=== PATIENT | male | born 1935 ===

== ENCOUNTER 2021-01-05 10:34 | Inpatient (IN) | payer MEDICARE ==
[~2021-01-05 10:34] MED LIST: Iopamidol-370 76% 500 ML 1 ML ONE
[2021-01-05] MEDS ORDERED: Cefepime 1 GM VIAL ONE (11:27)
[2021-01-05] MEDS ORDERED: Morphine 4 MG/ML VIAL ONE (11:27)
[2021-01-05 11:37] LABS: #Eosinphils 0.1 thou/uL (0.0-0.7); #Lymphocytes 1.3 thou/uL (1.20-3.40); #Monocytes 0.9 thou/uL (0.11-0.59); #Neutrophils 7.9 thou/uL (1.40-6.50); %Basophils 0.5 % (0.0-1.0); %Eosinophils 1.2 % (0.0-10.0); %Lymphocytes 12.5 % (21.0-51.0); %Monocytes 9.1 % (0.0-10.0); %Neutrophils 76.7 % (42.0-75.0); Hemoglobin 10.3 g/dL (14.0-18.0); Mean Corpuscular HGB CONC 31.9 g/dL (32.0-36.0); Mean Corpuscular Hemoglobin 32.1 pg (27.0-31.0); Mean Platelet Volume 9.9 fL (7.4-10.4); Platelet Count 223 thou/uL (130-400); RBC Distribution Width 14.2 % (11.5-14.5); Red Blood Cell (RBC) Count 3.21 mill/uL (4.70-6.10); White Blood Cell (WBC) Count 10.3 thou/uL (4.8-10.8)
[2021-01-05 11:57] LABS: ALT (SGPT) 8 U/L (8-55); AST (SGOT) 13 U/L (5-34); Albumin 3.1 g/dL (3.4-4.8); Alkaline Phosphatase 33 U/L (40-110); Anion Gap 11 mmol/L (10-20); BUN (Urea Nitrogen) 34 mg/dL (8.4-25.7); Bilirubin, Total 1.1 mg/dL (0.2-1.2); Calc. Creatinine Clearance 0 mL/min (70-130); Calcium 8.7 mg/dL (7.8-10.44); Carbon Dioxide 21 mmol/L (23-31); Chloride 110 mmol/L (98-107); Globulin 3.5 g/dL (2.4-3.5); Glucose 129 mg/dL (83-110); Potassium 3.7 mmol/L (3.5-5.1); Protein, Total 6.6 g/dL (5.8-8.1); Sodium 138 mmol/L (136-145)
[2021-01-05 11:58] LABS: CRP (Inflammatory) 12.71 mg/dL (= or < 0.5)
[2021-01-05] MEDS ORDERED: Vancomycin 1.5 GRAM/300 ML BAG 1.5 GM in Premix Bag 1 BAG IVPB SCH (12:00)
[2021-01-05 13:02] LABS: INR-International Normal Ratio 1.6; PTT 45.4 sec (22.9-36.1)
[2021-01-05] MEDS ORDERED: Heparin 25,000 units/D5W 500 ML ONE (13:25)
[2021-01-05] MEDS ORDERED: Senokot S 8.6-50 MG TAB PO PRN (14:50)
[2021-01-05] MEDS ORDERED: Bisacodyl 5 MG TAB PO PRN (14:50)
[2021-01-05] MEDS ORDERED: Ondansetron PF 4 MG/2 ML Vial IVP PRN (14:50)
[2021-01-05 15:36] LABS: Cardiac Risk 3.1 (Less than 4.5)
[2021-01-05 15:43] LABS: Hemoglobin A1c 5.2 % (4.0-6.0)
[2021-01-05] MEDS ORDERED: Piperacillin/Tazobactam 3.375 GM in Sodium Chloride 0.9% 100 ML IVPB SCH ×3 (16:00→20:00)
[2021-01-05] MEDS: Famotidine 20 MG TAB PO SCH (21:14)
[2021-01-05] MEDS: HYDROcodone/Acetaminophen 5/325 mg Tablet PO PRN (21:19)
[2021-01-06 00:37] LABS: SARS-CoV-2 NAA Rapid Test Not Detected (NotDetected)
[2021-01-06] MEDS: Piperacillin/Tazobactam 3.375 GM in Sodium Chloride 0.9% 100 ML IVPB SCH ×3 (02:15→17:08)
[2021-01-06 05:09] LABS: Hemoglobin 11.6 g/dL (14.0-18.0); Mean Corpuscular HGB CONC 31.9 g/dL (32.0-36.0); Mean Corpuscular Hemoglobin 32.7 pg (27.0-31.0); Mean Platelet Volume 9.6 fL (7.4-10.4); Platelet Count 226 thou/uL (130-400); RBC Distribution Width 14.3 % (11.5-14.5); Red Blood Cell (RBC) Count 3.55 mill/uL (4.70-6.10); White Blood Cell (WBC) Count 10.8 thou/uL (4.8-10.8)
[2021-01-06 05:44] LABS: Band 7 % (5-11); Eosinophils 1 % (0-10); Lymphocytes 15 % (21-51); MDiff Complete? YES; Monocytes 3 % (0-10); Neutrophil 74 % (42-75)
[2021-01-06 05:52] LABS: ALT (SGPT) 9 U/L (8-55); AST (SGOT) 19 U/L (5-34); Albumin 3.2 g/dL (3.4-4.8); Alkaline Phosphatase 36 U/L (40-110); Anion Gap 13 mmol/L (10-20); BUN (Urea Nitrogen) 29 mg/dL (8.4-25.7); Bilirubin, Total 0.9 mg/dL (0.2-1.2); Calc. Creatinine Clearance 35 mL/min (70-130); Calcium 8.8 mg/dL (7.8-10.44); Carbon Dioxide 18 mmol/L (23-31); Chloride 110 mmol/L (98-107); Globulin 3.7 g/dL (2.4-3.5); Glucose 96 mg/dL (83-110); Protein, Total 6.9 g/dL (5.8-8.1); Sodium 137 mmol/L (136-145)
[2021-01-06] MEDS: Famotidine 20 MG TAB PO SCH (08:43)
[2021-01-06] MEDS ORDERED: Enoxaparin Sodium 30 MG/0.3 ML SYRINGE SC SCH (09:00)
[2021-01-06] MEDS ORDERED: FLU VACC QS2021-22(65YR UP)/PF 240 MCG/0.7 ML SYRINGE IM ONE (09:00)
[2021-01-06] MEDS: hydrALAZINE 25 MG TAB PO SCH ×2 (17:09→20:38)
[2021-01-06] MEDS: hydrALAZINE 20 MG/ML VIAL SLOW IVP PRN ×2 (17:16→23:19)
[2021-01-07] MEDS: Piperacillin/Tazobactam 3.375 GM in Sodium Chloride 0.9% 100 ML IVPB SCH ×3 (01:16→17:18)
[2021-01-07] MEDS: hydrALAZINE 20 MG/ML VIAL SLOW IVP PRN (03:27)
[2021-01-07] MEDS: Famotidine 20 MG TAB PO SCH (08:17)
[2021-01-07] MEDS: Enoxaparin Sodium 40 MG/0.4 ML SYRINGE SC SCH (08:17)
[2021-01-07] MEDS: hydrALAZINE 25 MG TAB PO SCH ×4 (08:18→20:32)
[2021-01-08] MEDS: Piperacillin/Tazobactam 3.375 GM in Sodium Chloride 0.9% 100 ML IVPB SCH ×3 (02:01→18:09)
[2021-01-08] MEDS ORDERED: Fentanyl 250 MCG/5 ML VIAL ONE (06:43)
[2021-01-08] MEDS ORDERED: Phenylephrine 10 MG/ML VIAL ONE (06:44)
[2021-01-08] MEDS ORDERED: Ketamine 50 MG/ML (10ML VIAL) ONE (09:41)
[2021-01-08 09:55] LABS: #Eosinphils 0.1 thou/uL (0.0-0.7); #Monocytes 0.6 thou/uL (0.11-0.59); %Basophils 0.1 % (0.0-1.0); %Eosinophils 0.9 % (0.0-10.0); %Monocytes 5.7 % (0.0-10.0); %Neutrophils 84.4 % (42.0-75.0); Hemoglobin 11.8 g/dL (14.0-18.0); Mean Corpuscular Hemoglobin 32.8 pg (27.0-31.0); Platelet Count 285 thou/uL (130-400); RBC Distribution Width 14.6 % (11.5-14.5); White Blood Cell (WBC) Count 10.6 thou/uL (4.8-10.8)
[2021-01-08 10:16] LABS: INR-International Normal Ratio 1.3; PTT 43.9 sec (22.9-36.1)
[2021-01-08 10:21] LABS: Anion Gap 12 mmol/L (10-20); BUN (Urea Nitrogen) 25 mg/dL (8.4-25.7); Calc. Creatinine Clearance 41 mL/min (70-130); Calcium 9.2 mg/dL (7.8-10.44); Carbon Dioxide 22 mmol/L (23-31); Chloride 112 mmol/L (98-107); Glucose 122 mg/dL (83-110); Magnesium 2.4 mg/dL (1.6-2.6); Potassium 3.8 mmol/L (3.5-5.1); Sodium 142 mmol/L (136-145)
[2021-01-08] MEDS ORDERED: EPINEPHrine 1 MG/ML AMP ONE (10:23)
[2021-01-08] MEDS: hydrALAZINE 25 MG TAB PO SCH ×4 (10:23→21:08)
[2021-01-08] MEDS ORDERED: Dexamethasone 4 mg/ml Vial ONE (10:23)
[2021-01-08] MEDS ORDERED: Bupivacaine PF 0.5% 30 ML VIAL ONE (10:23)
[2021-01-08] MEDS ORDERED: Piperacillin/Tazobactam 3.375 GM VIAL ONE (10:31)
[2021-01-08] MEDS ORDERED: Sodium Chloride 0.9% 100 ML ONE (10:31)
[2021-01-08] MEDS ORDERED: PHENYLEPHRINE-NS 100 MCG/ML 10 ML SYRINGE ONE (10:47)
[2021-01-08] MEDS ORDERED: PROPOFOL 200 MG/20 ML VIAL ONE (10:47)
[2021-01-08] MEDS ORDERED: Glycopyrrolate 0.2 MG/ML 5 ML SYRINGE ONE (10:47)
[2021-01-08] MEDS ORDERED: Rocuronium Bromide 10 MG/ML (10ML VIAL) ONE (10:47)
[2021-01-08] MEDS ORDERED: Albumin 5% 500 ML ONE (11:17)
[2021-01-08] MEDS ORDERED: SUGAMMADEX SODIUM 200 MG/2 ML VIAL ONE (11:59)
[2021-01-08] MEDS ORDERED: Fentanyl 100 MCG/2 ML VIAL ONE (12:03)
[2021-01-08] MEDS ORDERED: Promethazine HCl 25 MG/ML VIAL IVPB PRN (12:15)
[2021-01-08] MEDS ORDERED: Ondansetron HCl/PF 4 MG/2 ML Vial IVP PRN (12:15)
[2021-01-08] MEDS ORDERED: Promethazine HCl 25 MG/ML VIAL IM PRN (12:15)
[2021-01-08] MEDS ORDERED: HYDROmorphone 2 MG/ML VIAL SLOW IVP PRN (12:15)
[2021-01-08] MEDS ORDERED: Fentanyl 100 MCG/2 ML VIAL SLOW IVP PRN (12:54)
[2021-01-08] MEDS ORDERED: traMADol HCl 50 MG TAB PO PRN (12:54)
[2021-01-08] MEDS: Enoxaparin Sodium 40 MG/0.4 ML SYRINGE SC SCH (13:10)
[2021-01-08] MEDS: Famotidine 20 MG TAB PO SCH (13:11)
[2021-01-08] MEDS ORDERED: Polyethylene Glycol 3350 17 GM Packet PO PRN (14:48)
[2021-01-08] MEDS: hydrALAZINE 20 MG/ML VIAL SLOW IVP PRN (18:12)
[2021-01-09] MEDS: Piperacillin/Tazobactam 3.375 GM in Sodium Chloride 0.9% 100 ML IVPB SCH ×3 (02:30→17:01)
[2021-01-09 06:50] LABS: Anion Gap 13 mmol/L (10-20); BUN (Urea Nitrogen) 26 mg/dL (8.4-25.7); Calc. Creatinine Clearance 46 mL/min (70-130); Carbon Dioxide 22 mmol/L (23-31); Chloride 114 mmol/L (98-107); Glucose 116 mg/dL (83-110); Potassium 3.9 mmol/L (3.5-5.1); Sodium 145 mmol/L (136-145)
[2021-01-09] MEDS: hydrALAZINE 25 MG TAB PO SCH ×4 (07:39→20:40)
[2021-01-09] MEDS: Famotidine 20 MG TAB PO SCH (07:39)
[2021-01-09] MEDS: Enoxaparin Sodium 40 MG/0.4 ML SYRINGE SC SCH (07:40)
[2021-01-09] MEDS: traMADol HCl 50 MG TAB PO PRN (07:40)
[2021-01-09] MEDS ORDERED: Amlodipine 5 MG TAB PO SCH (10:45)
[2021-01-09] MEDS ORDERED: Carvedilol 6.25 MG TAB PO SCH (10:45)
[2021-01-09] MEDS: HYDROcodone/Acetaminophen 5/325 mg Tablet PO PRN (13:18)
[2021-01-09] MEDS: Atorvastatin Calcium 10 MG TAB PO SCH (20:40)
[2021-01-09] MEDS: Carvedilol 6.25 MG TAB PO SCH (20:41)
[2021-01-10] MEDS: Piperacillin/Tazobactam 3.375 GM in Sodium Chloride 0.9% 100 ML IVPB SCH ×3 (02:21→18:45)
[2021-01-10] MEDS: Levothyroxine Sodium 25 MCG TAB PO SCH (05:26)
[2021-01-10 05:51] LABS: #Eosinphils 0.2 thou/uL (0.0-0.7); #Lymphocytes 1.4 thou/uL (1.20-3.40); #Monocytes 0.7 thou/uL (0.11-0.59); #Neutrophils 6.2 thou/uL (1.40-6.50); %Basophils 0.1 % (0.0-1.0); %Eosinophils 2.9 % (0.0-10.0); %Lymphocytes 16.1 % (21.0-51.0); %Monocytes 8.1 % (0.0-10.0); %Neutrophils 72.7 % (42.0-75.0); Hemoglobin 9.8 g/dL (14.0-18.0); Mean Corpuscular HGB CONC 33.1 g/dL (32.0-36.0); Mean Corpuscular Hemoglobin 33.9 pg (27.0-31.0); Mean Platelet Volume 8.9 fL (7.4-10.4); Platelet Count 258 thou/uL (130-400); RBC Distribution Width 14.7 % (11.5-14.5); Red Blood Cell (RBC) Count 2.89 mill/uL (4.70-6.10); White Blood Cell (WBC) Count 8.5 thou/uL (4.8-10.8)
[2021-01-10 06:11] LABS: Anion Gap 13 mmol/L (10-20); BUN (Urea Nitrogen) 26 mg/dL (8.4-25.7); Calc. Creatinine Clearance 44 mL/min (70-130); Calcium 8.8 mg/dL (7.8-10.44); Carbon Dioxide 23 mmol/L (23-31); Chloride 110 mmol/L (98-107); Glucose 96 mg/dL (83-110); Potassium 3.9 mmol/L (3.5-5.1); Sodium 142 mmol/L (136-145)
[2021-01-10] MEDS: Carvedilol 6.25 MG TAB PO SCH ×2 (09:35→20:18)
[2021-01-10] MEDS: Famotidine 20 MG TAB PO SCH (09:35)
[2021-01-10] MEDS: Amlodipine 5 MG TAB PO SCH (09:35)
[2021-01-10] MEDS: hydrALAZINE 25 MG TAB PO SCH ×4 (09:35→20:17)
[2021-01-10] MEDS: Finasteride 5 MG TAB PO SCH (09:35)
[2021-01-10] MEDS: Enoxaparin Sodium 40 MG/0.4 ML SYRINGE SC SCH (09:35)
[2021-01-10] MEDS: HYDROcodone/Acetaminophen 5/325 mg Tablet PO PRN (09:38)
[2021-01-10] MEDS: traMADol HCl 50 MG TAB PO PRN (14:07)
[2021-01-10] MEDS ORDERED: Sodium Chloride 0.9% 1,000 ML IV SCH (15:15)
[2021-01-10] MEDS: Atorvastatin Calcium 10 MG TAB PO SCH (20:18)
[2021-01-11] MEDS: Piperacillin/Tazobactam 3.375 GM in Sodium Chloride 0.9% 100 ML IVPB SCH (01:46)
[2021-01-11] MEDS: Levothyroxine Sodium 25 MCG TAB PO SCH (05:27)
[2021-01-11] MEDS: hydrALAZINE 25 MG TAB PO SCH ×4 (10:23→21:07)
[2021-01-11] MEDS: Famotidine 20 MG TAB PO SCH (10:23)
[2021-01-11] MEDS: Amlodipine 5 MG TAB PO SCH (10:23)
[2021-01-11] MEDS: Finasteride 5 MG TAB PO SCH (10:24)
[2021-01-11] MEDS: Enoxaparin Sodium 40 MG/0.4 ML SYRINGE SC SCH (10:24)
[2021-01-11] MEDS: Carvedilol 6.25 MG TAB PO SCH ×2 (10:24→21:07)
[2021-01-11] MEDS: traMADol HCl 50 MG TAB PO PRN ×2 (10:45→23:30)
[2021-01-11 11:39] LABS: #Eosinphils 0.4 thou/uL (0.0-0.7); #Lymphocytes 1.1 thou/uL (1.20-3.40); #Monocytes 0.5 thou/uL (0.11-0.59); %Basophils 0.5 % (0.0-1.0); %Eosinophils 5.8 % (0.0-10.0); %Monocytes 6.4 % (0.0-10.0); %Neutrophils 71.3 % (42.0-75.0); Hemoglobin 9.4 g/dL (14.0-18.0); Mean Corpuscular HGB CONC 32.7 g/dL (32.0-36.0); Mean Corpuscular Hemoglobin 33.1 pg (27.0-31.0); Mean Platelet Volume 8.6 fL (7.4-10.4); Platelet Count 248 thou/uL (130-400); RBC Distribution Width 14.5 % (11.5-14.5); Red Blood Cell (RBC) Count 2.83 mill/uL (4.70-6.10); White Blood Cell (WBC) Count 7.1 thou/uL (4.8-10.8)
[2021-01-11 12:02] LABS: Anion Gap 8 mmol/L (10-20); BUN (Urea Nitrogen) 25 mg/dL (8.4-25.7); Calc. Creatinine Clearance 45 mL/min (70-130); Calcium 8.2 mg/dL (7.8-10.44); Carbon Dioxide 25 mmol/L (23-31); Chloride 111 mmol/L (98-107); Glucose 130 mg/dL (83-110); Potassium 3.6 mmol/L (3.5-5.1); Sodium 140 mmol/L (136-145)
[2021-01-11] MEDS ORDERED: Tamsulosin HCl 0.4 MG CAP PO SCH (14:00)
[2021-01-11] MEDS: Atorvastatin Calcium 10 MG TAB PO SCH (21:08)
[2021-01-11] MEDS: Acetaminophen 325 MG TAB PO PRN (23:32)
[2021-01-12 04:35] LABS: #Eosinphils 0.4 thou/uL (0.0-0.7); #Lymphocytes 1.5 thou/uL (1.20-3.40); #Monocytes 0.5 thou/uL (0.11-0.59); #Neutrophils 3.9 thou/uL (1.40-6.50); %Basophils 0.5 % (0.0-1.0); %Eosinophils 5.8 % (0.0-10.0); %Lymphocytes 23.1 % (21.0-51.0); %Monocytes 8.5 % (0.0-10.0); %Neutrophils 62.2 % (42.0-75.0); Hemoglobin 9.3 g/dL (14.0-18.0); Mean Corpuscular HGB CONC 32.5 g/dL (32.0-36.0); Mean Corpuscular Hemoglobin 33.1 pg (27.0-31.0); Mean Platelet Volume 8.9 fL (7.4-10.4); Platelet Count 250 thou/uL (130-400); RBC Distribution Width 14.6 % (11.5-14.5); Red Blood Cell (RBC) Count 2.79 mill/uL (4.70-6.10); White Blood Cell (WBC) Count 6.3 thou/uL (4.8-10.8)
[2021-01-12] MEDS: Finasteride 5 MG TAB PO SCH (09:32)
[2021-01-12] MEDS: Famotidine 20 MG TAB PO SCH (09:32)
[2021-01-12] MEDS: Tamsulosin HCl 0.4 MG CAP PO SCH (09:33)
[2021-01-12] MEDS: Carvedilol 6.25 MG TAB PO SCH ×2 (09:33→21:01)
[2021-01-12] MEDS: Levothyroxine Sodium 25 MCG TAB PO SCH (09:33)
[2021-01-12] MEDS: Amlodipine 5 MG TAB PO SCH (09:33)
[2021-01-12] MEDS: hydrALAZINE 25 MG TAB PO SCH ×4 (09:33→21:02)
[2021-01-12] MEDS: Enoxaparin Sodium 40 MG/0.4 ML SYRINGE SC SCH (09:34)
[2021-01-12] MEDS ORDERED: Sodium Chloride 0.9% 1,000 ML IV SCH (09:45)
[2021-01-12 10:07] LABS: #Basophils 0.1 thou/uL (0.0-0.2); #Eosinphils 0.4 thou/uL (0.0-0.7); #Lymphocytes 1.5 thou/uL (1.20-3.40); #Monocytes 0.5 thou/uL (0.11-0.59); #Neutrophils 4.9 thou/uL (1.40-6.50); %Basophils 0.8 % (0.0-1.0); %Eosinophils 5.4 % (0.0-10.0); %Lymphocytes 20.6 % (21.0-51.0); %Monocytes 6.9 % (0.0-10.0); %Neutrophils 66.3 % (42.0-75.0); Hemoglobin 10.5 g/dL (14.0-18.0); Mean Corpuscular HGB CONC 32.5 g/dL (32.0-36.0); Mean Corpuscular Hemoglobin 32.9 pg (27.0-31.0); Mean Platelet Volume 8.9 fL (7.4-10.4); Platelet Count 299 thou/uL (130-400); RBC Distribution Width 14.5 % (11.5-14.5); Red Blood Cell (RBC) Count 3.19 mill/uL (4.70-6.10); White Blood Cell (WBC) Count 7.4 thou/uL (4.8-10.8)
[2021-01-12 10:32] LABS: Anion Gap 12 mmol/L (10-20); BUN (Urea Nitrogen) 28 mg/dL (8.4-25.7); Calc. Creatinine Clearance 42 mL/min (70-130); Calcium 8.9 mg/dL (7.8-10.44); Carbon Dioxide 24 mmol/L (23-31); Chloride 108 mmol/L (98-107); Glucose 109 mg/dL (83-110); Potassium 3.9 mmol/L (3.5-5.1); Sodium 140 mmol/L (136-145)
[2021-01-12] MEDS: HYDROcodone/Acetaminophen 5/325 mg Tablet PO PRN (20:57)
[2021-01-12] MEDS: Atorvastatin Calcium 10 MG TAB PO SCH (21:01)
[2021-01-13] MEDS: Levothyroxine Sodium 25 MCG TAB PO SCH (05:22)
[2021-01-13 05:46] LABS: #Eosinphils 0.3 thou/uL (0.0-0.7); #Lymphocytes 1.3 thou/uL (1.20-3.40); #Monocytes 0.5 thou/uL (0.11-0.59); #Neutrophils 4.1 thou/uL (1.40-6.50); %Basophils 0.1 % (0.0-1.0); %Eosinophils 4.6 % (0.0-10.0); %Lymphocytes 21.7 % (21.0-51.0); %Monocytes 7.9 % (0.0-10.0); %Neutrophils 65.7 % (42.0-75.0); Hemoglobin 9.2 g/dL (14.0-18.0); Mean Corpuscular HGB CONC 32.8 g/dL (32.0-36.0); Mean Corpuscular Hemoglobin 33.3 pg (27.0-31.0); Mean Platelet Volume 8.7 fL (7.4-10.4); Platelet Count 257 thou/uL (130-400); RBC Distribution Width 14.8 % (11.5-14.5); Red Blood Cell (RBC) Count 2.75 mill/uL (4.70-6.10); White Blood Cell (WBC) Count 6.2 thou/uL (4.8-10.8)
[2021-01-13 06:07] LABS: Anion Gap 10 mmol/L (10-20); BUN (Urea Nitrogen) 27 mg/dL (8.4-25.7); Calc. Creatinine Clearance 46 mL/min (70-130); Calcium 8.3 mg/dL (7.8-10.44); Carbon Dioxide 23 mmol/L (23-31); Chloride 111 mmol/L (98-107); Glucose 124 mg/dL (83-110); Potassium 3.5 mmol/L (3.5-5.1); Sodium 140 mmol/L (136-145)
[2021-01-13] MEDS: Tamsulosin HCl 0.4 MG CAP PO SCH (09:16)
[2021-01-13] MEDS: hydrALAZINE 25 MG TAB PO SCH (09:17)
[2021-01-13] MEDS: Carvedilol 6.25 MG TAB PO SCH (09:17)
[2021-01-13] MEDS: Amlodipine 5 MG TAB PO SCH (09:17)
[2021-01-13] MEDS: Famotidine 20 MG TAB PO SCH (09:18)
[2021-01-13] MEDS: Finasteride 5 MG TAB PO SCH (09:18)
[2021-01-13] MEDS: Enoxaparin Sodium 40 MG/0.4 ML SYRINGE SC SCH (09:18)
[2021-01-13] MEDS ORDERED: NIFEdipine XL 90 MG TAB PO SCH ×2 (09:45)
[2021-01-13 11:14] LABS: SARS-CoV-2 PCR by NAA Not Detected (NotDetected)
[2021-01-13] MEDS ORDERED: Calcium Chloride 1 GM/10 ML Abboject SYRINGE ONE ×2 (14:41→14:43)
[2021-01-13 14:58] LABS: Actual Bicarbonate (HCO3a) 18.5 mEq/L (22-28); Base Excess (BEa) -6.1 mEq/L (-2.0 to +3.0); CO2 Tension 32.8 mmHg (35.0-45.0); Calcium, Ionized (arterial) 1.12 mmol/L (1.12-1.30); Carboxyhemoglobin (COHb) 0.6 gm% (0.0-3.0); O2 Tension (PaO2), arterial 70.7 mmHg (> 60.0); Potassium - ABG Lab 3.53 mmol/L (3.70-5.30); Puncture Site LBA; pH, Arterial 7.37 (7.35-7.45)
[2021-01-13] MEDS ORDERED: Norepinephrine 8 MG/0.9% NS 250 ML IVPB SCH (15:45)
[2021-01-13] MEDS: Atorvastatin Calcium 10 MG TAB PO SCH (20:06)
[2021-01-13] MEDS: Dextrose 5 %-0.45 % NaCl 1,000 ML IV SCH (20:25)
[2021-01-14 04:34] LABS: #Eosinphils 0.1 thou/uL (0.0-0.7); #Lymphocytes 1.1 thou/uL (1.20-3.40); #Monocytes 0.7 thou/uL (0.11-0.59); %Eosinophils 0.9 % (0.0-10.0); %Lymphocytes 13.9 % (21.0-51.0); %Monocytes 8.4 % (0.0-10.0); %Neutrophils 76.8 % (42.0-75.0); Mean Corpuscular HGB CONC 33.4 g/dL (32.0-36.0); Mean Corpuscular Hemoglobin 33.8 pg (27.0-31.0); Mean Platelet Volume 8.7 fL (7.4-10.4); Platelet Count 238 thou/uL (130-400); RBC Distribution Width 15.3 % (11.5-14.5); Red Blood Cell (RBC) Count 2.66 mill/uL (4.70-6.10); White Blood Cell (WBC) Count 7.9 thou/uL (4.8-10.8)
[2021-01-14 04:59] LABS: Anion Gap 10 mmol/L (10-20); BUN (Urea Nitrogen) 32 mg/dL (8.4-25.7); Calc. Creatinine Clearance 32 mL/min (70-130); Calcium 9.2 mg/dL (7.8-10.44); Carbon Dioxide 22 mmol/L (23-31); Chloride 110 mmol/L (98-107); Glucose 120 mg/dL (83-110); Potassium 3.5 mmol/L (3.5-5.1); Sodium 138 mmol/L (136-145)
[2021-01-14] MEDS: Levothyroxine Sodium 25 MCG TAB PO SCH (05:29)
[2021-01-14] MEDS: Sodium Chloride 0.9% 1,000 ML IV SCH ×2 (05:29→17:22)
[2021-01-14] MEDS ORDERED: NIFEdipine XL 90 MG TAB PO SCH (09:00)
[2021-01-14] MEDS: Famotidine 20 MG TAB PO SCH (09:58)
[2021-01-14] MEDS: Tamsulosin HCl 0.4 MG CAP PO SCH (09:58)
[2021-01-14] MEDS: Enoxaparin Sodium 40 MG/0.4 ML SYRINGE SC SCH (09:58)
[2021-01-14] MEDS: Finasteride 5 MG TAB PO SCH (09:58)
[2021-01-14] MEDS ORDERED: Sodium Chloride 0.9% 500 ML IV SCH (10:45)
[2021-01-14] MEDS: Dextrose 5 %-0.45 % NaCl 1,000 ML IV SCH (17:22)
[2021-01-14] MEDS: Atorvastatin Calcium 10 MG TAB PO SCH (21:46)
[2021-01-15 04:37] LABS: #Eosinphils 0.2 thou/uL (0.0-0.7); #Lymphocytes 1.3 thou/uL (1.20-3.40); #Monocytes 0.6 thou/uL (0.11-0.59); #Neutrophils 4.3 thou/uL (1.40-6.50); %Eosinophils 3.6 % (0.0-10.0); %Lymphocytes 19.4 % (21.0-51.0); %Monocytes 9.4 % (0.0-10.0); %Neutrophils 67.6 % (42.0-75.0); Mean Corpuscular HGB CONC 33.3 g/dL (32.0-36.0); Mean Corpuscular Hemoglobin 33.7 pg (27.0-31.0); Platelet Count 240 thou/uL (130-400); RBC Distribution Width 15.4 % (11.5-14.5); Red Blood Cell (RBC) Count 2.67 mill/uL (4.70-6.10); White Blood Cell (WBC) Count 6.4 thou/uL (4.8-10.8)
[2021-01-15 04:53] LABS: Anion Gap 12 mmol/L (10-20); BUN (Urea Nitrogen) 31 mg/dL (8.4-25.7); Calc. Creatinine Clearance 40 mL/min (70-130); Calcium 8.6 mg/dL (7.8-10.44); Carbon Dioxide 21 mmol/L (23-31); Chloride 110 mmol/L (98-107); Glucose 122 mg/dL (83-110); Potassium 3.6 mmol/L (3.5-5.1); Sodium 139 mmol/L (136-145)
[2021-01-15] MEDS: Levothyroxine Sodium 25 MCG TAB PO SCH (06:07)
[2021-01-15] MEDS: Finasteride 5 MG TAB PO SCH (08:11)
[2021-01-15] MEDS: Famotidine 20 MG TAB PO SCH (08:12)
[2021-01-15] MEDS: Enoxaparin Sodium 40 MG/0.4 ML SYRINGE SC SCH (08:12)
[2021-01-15] MEDS: Tamsulosin HCl 0.4 MG CAP PO SCH (08:12)
[2021-01-15] MEDS: Sodium Chloride 0.9% 1,000 ML IV SCH (08:35)
[2021-01-15] MEDS: Dextrose 5 %-0.45 % NaCl 1,000 ML IV SCH (13:37)
[2021-01-15 13:56] LABS: Albumin 2.9 g/dL (3.4-4.8); Anion Gap 10 mmol/L (10-20); BUN (Urea Nitrogen) 30 mg/dL (8.4-25.7); BUN/Creatinine Ratio 20.13; Calc. Creatinine Clearance 40 mL/min (70-130); Calcium 8.6 mg/dL (7.8-10.44); Carbon Dioxide 21 mmol/L (23-31); Chloride 111 mmol/L (98-107); Glucose 124 mg/dL (83-110); Phosphorus 3.8 mg/dL (2.3-4.7); Potassium 3.8 mmol/L (3.5-5.1); Sodium 138 mmol/L (136-145)
[2021-01-15 14:02] LABS: Bilirubin Negative (Negative); Blood, Urine 3+ (Negative); Clarity Turbid (Clear); Glucose, Urine (Dipstick) Normal (Negative); Ketone, Urine Negative (Negative); Leukocyte 250 Leu/uL (Negative); Nitrite Negative (Negative); Protein, Urine (Dipstick) 30 mg/dL (Neg-Trace); Specific Gravity, Urine 1.016 (1.002-1.036); Squamous Epithelial None Seen HPF (0-3); Urobilinogen Normal mg/dL (Less than 2)
[2021-01-15 14:11] LABS: Sodium, Urine Less than 20 mmol/L (Not Available); Urea Nitrogen, Random Urine 689 mg/dl
[2021-01-15 14:14] LABS: Creatinine, Urine 136.87 mg/dL (63-166)
[2021-01-15 14:17] LABS: Bacteria/HPF 1+ HPF (None Seen)
[2021-01-15 14:18] LABS: Yeast-Budding 3+ HPF (None Seen)
[2021-01-15 14:21] LABS: Urine Culture Reflex Yes Yes
[2021-01-15] MEDS: HYDROcodone/Acetaminophen 5/325 mg Tablet PO PRN (19:15)
[2021-01-15] MEDS: Atorvastatin Calcium 10 MG TAB PO SCH (20:18)
[2021-01-15] MEDS ORDERED: Sodium Bicarbonate Tab 325 MG TAB PO SCH (21:00)
[2021-01-16] MEDS ORDERED: Albuterol Sulfate 1.25 MG/3 ML NEB NEB PRN (03:25)
[2021-01-16 04:51] LABS: #Eosinphils 0.2 thou/uL (0.0-0.7); #Lymphocytes 1.4 thou/uL (1.20-3.40); #Monocytes 0.8 thou/uL (0.11-0.59); #Neutrophils 5.7 thou/uL (1.40-6.50); %Basophils 0.1 % (0.0-1.0); %Lymphocytes 16.8 % (21.0-51.0); %Monocytes 10.2 % (0.0-10.0); %Neutrophils 70.9 % (42.0-75.0); Hemoglobin 9.9 g/dL (14.0-18.0); Mean Corpuscular HGB CONC 32.6 g/dL (32.0-36.0); Mean Corpuscular Hemoglobin 33.1 pg (27.0-31.0); Mean Platelet Volume 9.3 fL (7.4-10.4); Platelet Count 227 thou/uL (130-400); RBC Distribution Width 15.6 % (11.5-14.5); White Blood Cell (WBC) Count 8.1 thou/uL (4.8-10.8)
[2021-01-16 05:16] LABS: Phosphorus 3.7 mg/dL (2.3-4.7)
[2021-01-16 05:21] LABS: Anion Gap 12 mmol/L (10-20); BUN (Urea Nitrogen) 30 mg/dL (8.4-25.7); Calc. Creatinine Clearance 48 mL/min (70-130); Calcium 8.7 mg/dL (7.8-10.44); Carbon Dioxide 19 mmol/L (23-31); Chloride 112 mmol/L (98-107); Glucose 97 mg/dL (83-110); Magnesium 2.3 mg/dL (1.6-2.6); Potassium 3.9 mmol/L (3.5-5.1); Sodium 139 mmol/L (136-145)
[2021-01-16] MEDS: Levothyroxine Sodium 25 MCG TAB PO SCH (05:50)
[2021-01-16] MEDS ORDERED: Furosemide 20 MG/2 ML VIAL SLOW IVP SCH (06:00)
[2021-01-16] MEDS ORDERED: Torsemide 20 MG TAB PO SCH (06:00)
[2021-01-16] MEDS ORDERED: HYDROcodone/Acetaminophen 5/325 mg Tablet PO PRN (08:57)
[2021-01-16] MEDS ORDERED: Rocuronium Bromide 10 MG/ML (10ML VIAL) ONE (09:59)
[2021-01-16] MEDS ORDERED: EPINEPHrine 1 MG/10 ML Abboject SYRINGE ONE (09:59)
[2021-01-16] MEDS ORDERED: Propofol 1,000 MG/100 ML VIAL IV ONE (10:20)
[2021-01-16 10:44] LABS: Lactic Acid 2.6 mmol/L (0.5-2.2)
[2021-01-16 10:54] LABS: ALT (SGPT) 25 U/L (8-55); AST (SGOT) 48 U/L (5-34); Albumin 2.8 g/dL (3.4-4.8); Alkaline Phosphatase 40 U/L (40-110); Anion Gap 17 mmol/L (10-20); BUN (Urea Nitrogen) 32 mg/dL (8.4-25.7); Bilirubin, Total 0.4 mg/dL (0.2-1.2); Calc. Creatinine Clearance 43 mL/min (70-130); Calcium 7.9 mg/dL (7.8-10.44); Carbon Dioxide 14 mmol/L (23-31); Chloride 113 mmol/L (98-107); Globulin 3.1 g/dL (2.4-3.5); Glucose 171 mg/dL (83-110); Magnesium 2.2 mg/dL (1.6-2.6); Potassium 4.5 mmol/L (3.5-5.1); Protein, Total 5.9 g/dL (5.8-8.1); Sodium 139 mmol/L (136-145); Troponin I 0.012 ng/mL (< 0.028)
[2021-01-16 10:55] LABS: Actual Bicarbonate (HCO3a) 17.4 mEq/L (22-28); Base Excess (BEa) -5.1 mEq/L (-2.0 to +3.0); Calcium, Ionized (arterial) 1.18 mmol/L (1.12-1.30); Carboxyhemoglobin (COHb) 0.3 gm% (0.0-3.0); Hemoglobin (Hb) 9.8 g/dL (14.0-18.0); O2 Tension (PaO2), arterial 71.4 mmHg (> 60.0); Potassium - ABG Lab 3.62 mmol/L (3.70-5.30); pH, Arterial 7.47 (7.35-7.45)
[2021-01-16 11:04] LABS: ALV-art Gradient 182.925 mmHg (0-20); CO2 Tension 24.7 mmHg (35.0-45.0); Puncture Site RBA
[2021-01-16 11:12] LABS: #Eosinphils 0.1 thou/uL (0.0-0.7); #Monocytes 0.9 thou/uL (0.11-0.59); #Neutrophils 12.3 thou/uL (1.40-6.50); %Lymphocytes 6.8 % (21.0-51.0); %Monocytes 6.3 % (0.0-10.0); Mean Corpuscular HGB CONC 33.5 g/dL (32.0-36.0); Mean Corpuscular Hemoglobin 34.4 pg (27.0-31.0); Mean Platelet Volume 9.2 fL (7.4-10.4); Platelet Count 200 thou/uL (130-400); White Blood Cell (WBC) Count 14.3 thou/uL (4.8-10.8)
[2021-01-16] MEDS ORDERED: Morphine 4 MG/ML VIAL SLOW IVP PRN (11:42)
[2021-01-16] MEDS ORDERED: DISCONTINUE PREVIOUS NARCOTIC PAIN MEDICATIONS AND BENZODIAZEPINES FS SCH (11:45)
[2021-01-16] MEDS ORDERED: Fentanyl CADD 100 ML ONE (11:45)
[2021-01-16] MEDS ORDERED: Propofol BOLUS 1,000 MG/100 ML VIAL IV PRN (11:45)
[2021-01-16] MEDS ORDERED: Fentanyl BOLUS 250 ML IVPB PRN (11:45)
[2021-01-16] MEDS: Fentanyl CADD 100 ML IV SCH (12:18)
[2021-01-16] MEDS: Famotidine 20 MG TAB PO SCH (13:00)
[2021-01-16] MEDS: Finasteride 5 MG TAB PO SCH (13:00)
[2021-01-16] MEDS: Tamsulosin HCl 0.4 MG CAP PO SCH (13:01)
[2021-01-16] MEDS: Sodium Bicarbonate Tab 325 MG TAB PO SCH ×3 (13:01→19:42)
[2021-01-16] MEDS ORDERED: DOBUTamine 500 mg/250 ml 250 ML ONE (13:28)
[2021-01-16] MEDS: DOBUTamine 500 mg/250 ml 250 ML IVPB SCH (13:37)
[2021-01-16 16:16] LABS: Troponin I 0.129 ng/mL (< 0.028)
[2021-01-16] MEDS: Enoxaparin Sodium 40 MG/0.4 ML SYRINGE SC SCH ×2 (16:47→19:41)
[2021-01-16] MEDS: Propofol 1,000 MG/100 ML VIAL IV PRN (19:41)
[2021-01-16] MEDS: Lorazepam 2 MG/ML VIAL SLOW IVP PRN (19:50)
[2021-01-16] MEDS: Atorvastatin Calcium 10 MG TAB PO SCH (21:55)
[2021-01-17] MEDS: Lorazepam 2 MG/ML VIAL SLOW IVP PRN ×4 (01:06→21:19)
[2021-01-17] MEDS: Levothyroxine Sodium 25 MCG TAB PO SCH (05:23)
[2021-01-17 05:26] LABS: #Eosinphils 0.1 thou/uL (0.0-0.7); #Lymphocytes 1.7 thou/uL (1.20-3.40); #Monocytes 0.6 thou/uL (0.11-0.59); #Neutrophils 4.7 thou/uL (1.40-6.50); %Basophils 0.3 % (0.0-1.0); %Eosinophils 1.5 % (0.0-10.0); %Lymphocytes 24.3 % (21.0-51.0); %Monocytes 8.3 % (0.0-10.0); %Neutrophils 65.6 % (42.0-75.0); Hemoglobin 8.6 g/dL (14.0-18.0); Mean Corpuscular HGB CONC 33.7 g/dL (32.0-36.0); Mean Platelet Volume 9.1 fL (7.4-10.4); Platelet Count 184 thou/uL (130-400); RBC Distribution Width 16.3 % (11.5-14.5); Red Blood Cell (RBC) Count 2.53 mill/uL (4.70-6.10); White Blood Cell (WBC) Count 7.2 thou/uL (4.8-10.8)
[2021-01-17 05:43] LABS: Anion Gap 10 mmol/L (10-20); BUN (Urea Nitrogen) 30 mg/dL (8.4-25.7); Calc. Creatinine Clearance 41 mL/min (70-130); Calcium 8.5 mg/dL (7.8-10.44); Carbon Dioxide 24 mmol/L (23-31); Chloride 111 mmol/L (98-107); Glucose 79 mg/dL (83-110); Potassium 3.5 mmol/L (3.5-5.1); Sodium 141 mmol/L (136-145)
[2021-01-17 05:46] LABS: Troponin I 0.279 ng/mL (< 0.028)
[2021-01-17 06:43] LABS: Albumin 2.4 g/dL (3.4-4.8); Magnesium 1.8 mg/dL (1.6-2.6)
[2021-01-17] MEDS ORDERED: Furosemide 40 MG/4 ML VIAL SLOW IVP SCH (07:30)
[2021-01-17] MEDS ORDERED: Potassium Chloride 20 MEQ TAB PO SCH (07:30)
[2021-01-17] MEDS: Furosemide 20 MG/2 ML VIAL SLOW IVP SCH ×3 (09:07→23:42)
[2021-01-17] MEDS: Sodium Bicarbonate Tab 325 MG TAB PO SCH ×3 (09:07→21:20)
[2021-01-17] MEDS: Famotidine 20 MG TAB PO SCH (09:07)
[2021-01-17] MEDS: Finasteride 5 MG TAB PO SCH (09:07)
[2021-01-17] MEDS: Albumin 25% 25 GM/100 ML BOT IVPB SCH (09:09)
[2021-01-17] MEDS: Tamsulosin HCl 0.4 MG CAP PO SCH (09:11)
[2021-01-17] MEDS: Spironolactone 25 MG TAB PO SCH (09:11)
[2021-01-17] MEDS: DOBUTamine 500 mg/250 ml 250 ML IVPB SCH (09:46)
[2021-01-17] MEDS: Propofol 1,000 MG/100 ML VIAL IV PRN ×3 (12:45→21:20)
[2021-01-17] MEDS: Fentanyl CADD 100 ML IV SCH (17:00)
[2021-01-17] MEDS: Enoxaparin Sodium 40 MG/0.4 ML SYRINGE SC SCH (21:20)
[2021-01-17] MEDS: Atorvastatin Calcium 10 MG TAB PO SCH (21:24)
[2021-01-18 05:58] LABS: #Eosinphils 0.3 thou/uL (0.0-0.7); #Lymphocytes 1.8 thou/uL (1.20-3.40); #Monocytes 0.6 thou/uL (0.11-0.59); #Neutrophils 3.5 thou/uL (1.40-6.50); %Basophils 0.7 % (0.0-1.0); %Eosinophils 4.2 % (0.0-10.0); %Monocytes 9.7 % (0.0-10.0); %Neutrophils 56.5 % (42.0-75.0); Mean Corpuscular HGB CONC 33.9 g/dL (32.0-36.0); Mean Corpuscular Hemoglobin 33.9 pg (27.0-31.0); Mean Platelet Volume 9.2 fL (7.4-10.4); Platelet Count 180 thou/uL (130-400); RBC Distribution Width 16.3 % (11.5-14.5); Red Blood Cell (RBC) Count 2.64 mill/uL (4.70-6.10); White Blood Cell (WBC) Count 6.2 thou/uL (4.8-10.8)
[2021-01-18] MEDS: Levothyroxine Sodium 25 MCG TAB PO SCH (06:08)
[2021-01-18 06:14] LABS: Anion Gap 12 mmol/L (10-20); BUN (Urea Nitrogen) 29 mg/dL (8.4-25.7); Calc. Creatinine Clearance 37 mL/min (70-130); Calcium 8.3 mg/dL (7.8-10.44); Carbon Dioxide 24 mmol/L (23-31); Chloride 106 mmol/L (98-107); Glucose 79 mg/dL (83-110); Potassium 3.1 mmol/L (3.5-5.1); Sodium 139 mmol/L (136-145)
[2021-01-18 06:20] LABS: Troponin I 0.152 ng/mL (< 0.028)
[2021-01-18] MEDS: Propofol 1,000 MG/100 ML VIAL IV PRN ×5 (06:29→21:40)
[2021-01-18] MEDS: DOBUTamine 500 mg/250 ml 250 ML IVPB SCH (06:29)
[2021-01-18] MEDS ORDERED: Albumin 5% 0 ML ONE (07:51)
[2021-01-18] MEDS: Spironolactone 25 MG TAB PO SCH (07:55)
[2021-01-18] MEDS: Furosemide 20 MG/2 ML VIAL SLOW IVP SCH ×3 (07:56→23:22)
[2021-01-18] MEDS: Albumin 25% 25 GM/100 ML BOT IVPB SCH (07:59)
[2021-01-18] MEDS: Sodium Bicarbonate Tab 325 MG TAB PO SCH ×3 (08:03→21:40)
[2021-01-18] MEDS: Famotidine 20 MG TAB PO SCH (08:03)
[2021-01-18] MEDS: Finasteride 5 MG TAB PO SCH (08:03)
[2021-01-18] MEDS: Tamsulosin HCl 0.4 MG CAP PO SCH (08:04)
[2021-01-18] MEDS ORDERED: ceFAZolin 2 GM/DEX 5% 100 ML BAG ONE (08:19)
[2021-01-18] MEDS ORDERED: Gentamicin 80 MG/2 ML VIAL ONE ×2 (08:26→13:48)
[2021-01-18] MEDS ORDERED: Lidocaine 1% (PF) 30 ML VIAL ONE ×2 (08:26→13:48)
[2021-01-18] MEDS ORDERED: CEFAZOLIN 1 GM VIAL ONE ×2 (08:26→13:48)
[2021-01-18] MEDS ORDERED: Budesonide 0.25 MG/2 ML NEB ONE (08:44)
[2021-01-18] MEDS: Fentanyl CADD 100 ML IV SCH (13:37)
[2021-01-18] MEDS: Enoxaparin Sodium 40 MG/0.4 ML SYRINGE SC SCH (21:40)
[2021-01-18] MEDS: Atorvastatin Calcium 10 MG TAB PO SCH (21:53)
[2021-01-19] MEDS: DOBUTamine 500 mg/250 ml 250 ML IVPB SCH (03:32)
[2021-01-19 04:35] LABS: #Eosinphils 0.2 thou/uL (0.0-0.7); #Lymphocytes 1.3 thou/uL (1.20-3.40); #Monocytes 0.4 thou/uL (0.11-0.59); #Neutrophils 3.9 thou/uL (1.40-6.50); %Basophils 0.4 % (0.0-1.0); %Eosinophils 4.1 % (0.0-10.0); %Lymphocytes 21.4 % (21.0-51.0); %Monocytes 7.4 % (0.0-10.0); %Neutrophils 66.7 % (42.0-75.0); Hemoglobin 9.3 g/dL (14.0-18.0); Mean Corpuscular HGB CONC 34.1 g/dL (32.0-36.0); Mean Corpuscular Hemoglobin 34.1 pg (27.0-31.0); Mean Corpuscular Volume 99.9 fL (78.0-98.0); Mean Platelet Volume 9.8 fL (7.4-10.4); Platelet Count 176 thou/uL (130-400); RBC Distribution Width 16.1 % (11.5-14.5); Red Blood Cell (RBC) Count 2.73 mill/uL (4.70-6.10); White Blood Cell (WBC) Count 5.9 thou/uL (4.8-10.8)
[2021-01-19 04:54] LABS: Anion Gap 12 mmol/L (10-20); BUN (Urea Nitrogen) 26 mg/dL (8.4-25.7); Calc. Creatinine Clearance 35 mL/min (70-130); Calcium 8.8 mg/dL (7.8-10.44); Carbon Dioxide 28 mmol/L (23-31); Chloride 103 mmol/L (98-107); Glucose 83 mg/dL (83-110); Sodium 140 mmol/L (136-145)
[2021-01-19] MEDS: Levothyroxine Sodium 25 MCG TAB PO SCH (05:47)
[2021-01-19] MEDS: Propofol 1,000 MG/100 ML VIAL IV PRN (05:47)
[2021-01-19] MEDS ORDERED: CEFAZOLIN 1 GM VIAL ONE (06:33)
[2021-01-19] MEDS ORDERED: Lidocaine 1% (PF) 30 ML VIAL ONE (06:33)
[2021-01-19] MEDS ORDERED: ceFAZolin 2 GM/DEX 5% 100 ML BAG ONE (06:33)
[2021-01-19] MEDS ORDERED: Gentamicin 80 MG/2 ML VIAL ONE (06:33)
[2021-01-19] MEDS: Spironolactone 25 MG TAB PO SCH (08:20)
[2021-01-19] MEDS: Famotidine 20 MG TAB PO SCH (08:20)
[2021-01-19] MEDS: Finasteride 5 MG TAB PO SCH (08:20)
[2021-01-19] MEDS: Furosemide 20 MG/2 ML VIAL SLOW IVP SCH (08:20)
[2021-01-19] MEDS: Sodium Bicarbonate Tab 325 MG TAB PO SCH ×3 (08:20→21:49)
[2021-01-19] MEDS: Tamsulosin HCl 0.4 MG CAP PO SCH (08:20)
[2021-01-19] MEDS ORDERED: Potassium Chloride 20 MEQ TAB PO SCH (09:00)
[2021-01-19 10:16] LABS: Magnesium 1.5 mg/dL (1.6-2.6)
[2021-01-19] MEDS ORDERED: Potassium Bicarbonate/Cit Ac 20 MEQ TAB PO SCH (11:30)
[2021-01-19] MEDS ORDERED: Magnesium 2 GM/50 ML 2 GM in Premix Bag 1 BAG IVPB SCH (12:15)
[2021-01-19] MEDS: Sodium Chloride 0.9% 500 ML IV SCH ×2 (14:06→14:27)
[2021-01-19 15:52] LABS: Anion Gap 15 mmol/L (10-20); BUN (Urea Nitrogen) 26 mg/dL (8.4-25.7); Calc. Creatinine Clearance 34 mL/min (70-130); Calcium 8.2 mg/dL (7.8-10.44); Carbon Dioxide 25 mmol/L (23-31); Chloride 104 mmol/L (98-107); Glucose 138 mg/dL (83-110); Potassium 4.3 mmol/L (3.5-5.1); Sodium 140 mmol/L (136-145)
[2021-01-19] MEDS: Enoxaparin Sodium 40 MG/0.4 ML SYRINGE SC SCH (21:49)
[2021-01-19] MEDS: Atorvastatin Calcium 10 MG TAB PO SCH (22:27)
[2021-01-20 04:49] LABS: #Eosinphils 0.1 thou/uL (0.0-0.7); #Lymphocytes 1.3 thou/uL (1.20-3.40); #Monocytes 0.7 thou/uL (0.11-0.59); #Neutrophils 3.8 thou/uL (1.40-6.50); %Basophils 0.3 % (0.0-1.0); %Eosinophils 2.4 % (0.0-10.0); %Lymphocytes 21.7 % (21.0-51.0); %Monocytes 11.1 % (0.0-10.0); %Neutrophils 64.4 % (42.0-75.0); Hemoglobin 8.8 g/dL (14.0-18.0); Mean Corpuscular HGB CONC 33.9 g/dL (32.0-36.0); Mean Platelet Volume 10.5 fL (7.4-10.4); Platelet Count 155 thou/uL (130-400); RBC Distribution Width 15.9 % (11.5-14.5); Red Blood Cell (RBC) Count 2.58 mill/uL (4.70-6.10); White Blood Cell (WBC) Count 5.9 thou/uL (4.8-10.8)
[2021-01-20 05:05] LABS: Albumin 2.5 g/dL (3.4-4.8); Anion Gap 11 mmol/L (10-20); BUN (Urea Nitrogen) 33 mg/dL (8.4-25.7); BUN/Creatinine Ratio 16.02; Calc. Creatinine Clearance 30 mL/min (70-130); Calcium 8.5 mg/dL (7.8-10.44); Carbon Dioxide 30 mmol/L (23-31); Chloride 104 mmol/L (98-107); Glucose 173 mg/dL (83-110); Magnesium 2.2 mg/dL (1.6-2.6); Phosphorus 3.3 mg/dL (2.3-4.7); Potassium 3.6 mmol/L (3.5-5.1); Sodium 141 mmol/L (136-145)
[2021-01-20] MEDS: Albumin 25% 25 GM/100 ML BOT IVPB SCH ×4 (06:12→23:20)
[2021-01-20] MEDS: Levothyroxine Sodium 25 MCG TAB PO SCH (06:12)
[2021-01-20 07:49] LABS: Bacteria/HPF 2+ HPF (None Seen); Bilirubin Negative (Negative); Blood, Urine 3+ (Negative); Clarity Turbid (Clear); Glucose, Urine (Dipstick) Normal (Negative); Ketone, Urine Negative (Negative); Leukocyte 500 Leu/uL (Negative); Nitrite Negative (Negative); Protein, Urine (Dipstick) 30 mg/dL (Neg-Trace); Specific Gravity, Urine 1.022 (1.002-1.036); Squamous Epithelial 0-3 HPF (0-3); WBC/HPF Greater than 50 HPF (0-3); pH, Urine 5.5 (5.0-9.0)
[2021-01-20 07:50] LABS: Unclassified Crystals 3+ HPF (None Seen)
[2021-01-20 07:55] LABS: RBC/HPF 0-3 HPF (0-3)
[2021-01-20 07:56] LABS: Sperm/HPF 1+ HPF (None Seen); Yeast-Budding 3+ HPF (None Seen); Yeast-Hyphae 1+ HPF (None Seen)
[2021-01-20 07:59] LABS: Creatinine, Urine 129.32 mg/dL (63-166); Renal Epithelial 0-3 HPF (None Seen)
[2021-01-20] MEDS: Famotidine 20 MG TAB PO SCH (08:59)
[2021-01-20] MEDS: Finasteride 5 MG TAB PO SCH (08:59)
[2021-01-20] MEDS: Sodium Bicarbonate Tab 325 MG TAB PO SCH ×3 (08:59→20:14)
[2021-01-20] MEDS: Tamsulosin HCl 0.4 MG CAP PO SCH (08:59)
[2021-01-20] MEDS: Acetaminophen 325 MG TAB PO PRN (20:13)
[2021-01-20] MEDS: Atorvastatin Calcium 10 MG TAB PO SCH (20:14)
[2021-01-20] MEDS: Enoxaparin Sodium 30 MG/0.3 ML SYRINGE SC SCH (20:14)
[2021-01-21 04:26] LABS: #Eosinphils 0.3 thou/uL (0.0-0.7); #Lymphocytes 1.4 thou/uL (1.20-3.40); #Monocytes 0.6 thou/uL (0.11-0.59); #Neutrophils 3.7 thou/uL (1.40-6.50); %Basophils 0.3 % (0.0-1.0); %Eosinophils 5.1 % (0.0-10.0); %Lymphocytes 23.5 % (21.0-51.0); %Monocytes 9.5 % (0.0-10.0); %Neutrophils 61.6 % (42.0-75.0); Hemoglobin 7.7 g/dL (14.0-18.0); Mean Corpuscular HGB CONC 33.6 g/dL (32.0-36.0); Mean Corpuscular Hemoglobin 34.1 pg (27.0-31.0); Mean Platelet Volume 10.4 fL (7.4-10.4); Platelet Count 139 thou/uL (130-400); RBC Distribution Width 15.6 % (11.5-14.5); Red Blood Cell (RBC) Count 2.27 mill/uL (4.70-6.10); White Blood Cell (WBC) Count 6.1 thou/uL (4.8-10.8)
[2021-01-21 05:53] LABS: Albumin 3.4 g/dL (3.4-4.8)
[2021-01-21 05:54] LABS: Chloride 104 mmol/L (98-107); Potassium 3.7 mmol/L (3.5-5.1); Sodium 140 mmol/L (136-145)
[2021-01-21 05:55] LABS: Calcium 8.7 mg/dL (7.8-10.44); Glucose 129 mg/dL (83-110)
[2021-01-21 05:57] LABS: Anion Gap 12 mmol/L (10-20); Carbon Dioxide 28 mmol/L (23-31)
[2021-01-21 05:59] LABS: BUN (Urea Nitrogen) 27 mg/dL (8.4-25.7); BUN/Creatinine Ratio 15.61; Calc. Creatinine Clearance 33 mL/min (70-130)
[2021-01-21 06:05] LABS: Phosphorus 2.3 mg/dL (2.3-4.7)
[2021-01-21] MEDS: Levothyroxine Sodium 25 MCG TAB PO SCH (06:20)
[2021-01-21] MEDS: Finasteride 5 MG TAB PO SCH (08:19)
[2021-01-21] MEDS: Tamsulosin HCl 0.4 MG CAP PO SCH (08:19)
[2021-01-21] MEDS: Sodium Bicarbonate Tab 325 MG TAB PO SCH (08:19)
[2021-01-21] MEDS: Famotidine 20 MG TAB PO SCH (08:19)
[2021-01-21] MEDS: Furosemide 20 MG/2 ML VIAL SLOW IVP SCH ×2 (08:31→20:28)
[2021-01-21] MEDS: acetaZOLAMIDE Sodium 500 mg Vial IVP SCH ×2 (10:11→20:28)
[2021-01-21 10:53] LABS: Iron 48 ug/dL (65-175); Iron Binding Capacity, Total 119 mcg/dL (261-462)
[2021-01-21] MEDS: Albumin 25% 25 GM/100 ML BOT IVPB SCH ×2 (11:36→17:15)
[2021-01-21] MEDS: Enoxaparin Sodium 30 MG/0.3 ML SYRINGE SC SCH (20:27)
[2021-01-21] MEDS: Atorvastatin Calcium 10 MG TAB PO SCH (20:27)
[2021-01-22 04:16] LABS: #Eosinphils 0.4 thou/uL (0.0-0.7); #Lymphocytes 1.1 thou/uL (1.20-3.40); #Monocytes 0.5 thou/uL (0.11-0.59); #Neutrophils 3.8 thou/uL (1.40-6.50); %Basophils 0.3 % (0.0-1.0); %Eosinophils 7.5 % (0.0-10.0); %Lymphocytes 18.3 % (21.0-51.0); %Monocytes 8.1 % (0.0-10.0); %Neutrophils 65.8 % (42.0-75.0); Hemoglobin 7.9 g/dL (14.0-18.0); Mean Corpuscular HGB CONC 32.7 g/dL (32.0-36.0); Mean Corpuscular Hemoglobin 33.8 pg (27.0-31.0); Mean Platelet Volume 10.3 fL (7.4-10.4); Platelet Count 130 thou/uL (130-400); RBC Distribution Width 15.4 % (11.5-14.5); Red Blood Cell (RBC) Count 2.35 mill/uL (4.70-6.10); White Blood Cell (WBC) Count 5.8 thou/uL (4.8-10.8)
[2021-01-22 05:24] LABS: Albumin 3.5 g/dL (3.4-4.8); Anion Gap 10 mmol/L (10-20); BUN (Urea Nitrogen) 30 mg/dL (8.4-25.7); BUN/Creatinine Ratio 22.73; Calc. Creatinine Clearance 43 mL/min (70-130); Calcium 8.5 mg/dL (7.8-10.44); Carbon Dioxide 31 mmol/L (23-31); Chloride 101 mmol/L (98-107); Glucose 136 mg/dL (83-110); Phosphorus 3.2 mg/dL (2.3-4.7); Potassium 3.7 mmol/L (3.5-5.1); Sodium 138 mmol/L (136-145)
[2021-01-22] MEDS: Levothyroxine Sodium 25 MCG TAB PO SCH (05:55)
[2021-01-22] MEDS ORDERED: acetaZOLAMIDE Sodium 500 mg Vial IVP SCH (06:30)
[2021-01-22] MEDS ORDERED: Epoetin (ESRD) 20,000 UNITS/ML SC SCH (09:15)
[2021-01-22] MEDS ORDERED: Iron, Sodium Ferric Gluconate 250 MG in Sodium Chloride 0.9% 250 ML 250 ML IVPB SCH (09:30)
[2021-01-22] MEDS: EPOETIN ALFA-EPBX (ESRD) 3,000 UNIT/ML VIAL SC SCH (10:15)
[2021-01-22] MEDS: EPOETIN ALFA-EPBX (ESRD) 2,000 UNIT/ML VIAL SC SCH (10:16)
[2021-01-22] MEDS: Tamsulosin HCl 0.4 MG CAP PO SCH (10:17)
[2021-01-22] MEDS: Finasteride 5 MG TAB PO SCH (10:17)
[2021-01-22] MEDS: Famotidine 20 MG TAB PO SCH (10:39)
[2021-01-22] MEDS: Enoxaparin Sodium 30 MG/0.3 ML SYRINGE SC SCH (20:49)
[2021-01-22] MEDS: acetaZOLAMIDE Sodium 500 mg Vial IVP SCH (20:49)
[2021-01-22] MEDS: Atorvastatin Calcium 10 MG TAB PO SCH ×2 (20:49→20:51)
[2021-01-23 04:36] LABS: #Eosinphils 0.3 thou/uL (0.0-0.7); #Lymphocytes 1.5 thou/uL (1.20-3.40); #Monocytes 0.6 thou/uL (0.11-0.59); #Neutrophils 4.5 thou/uL (1.40-6.50); %Basophils 0.3 % (0.0-1.0); %Lymphocytes 21.5 % (21.0-51.0); %Monocytes 8.1 % (0.0-10.0); %Neutrophils 65.2 % (42.0-75.0); Hemoglobin 8.7 g/dL (14.0-18.0); Mean Corpuscular HGB CONC 32.8 g/dL (32.0-36.0); Mean Corpuscular Hemoglobin 34.1 pg (27.0-31.0); Mean Platelet Volume 10.2 fL (7.4-10.4); Platelet Count 148 thou/uL (130-400); RBC Distribution Width 15.2 % (11.5-14.5); Red Blood Cell (RBC) Count 2.56 mill/uL (4.70-6.10); White Blood Cell (WBC) Count 6.9 thou/uL (4.8-10.8)
[2021-01-23 04:56] LABS: Albumin 3.5 g/dL (3.4-4.8); Anion Gap 11 mmol/L (10-20); BUN (Urea Nitrogen) 32 mg/dL (8.4-25.7); Calc. Creatinine Clearance 41 mL/min (70-130); Carbon Dioxide 28 mmol/L (23-31); Chloride 105 mmol/L (98-107); Glucose 102 mg/dL (83-110); Phosphorus 3.2 mg/dL (2.3-4.7); Potassium 3.7 mmol/L (3.5-5.1); Sodium 140 mmol/L (136-145)
[2021-01-23] MEDS: Levothyroxine Sodium 25 MCG TAB PO SCH (06:06)
[2021-01-23] MEDS: acetaZOLAMIDE Sodium 500 mg Vial IVP SCH ×2 (09:23→21:30)
[2021-01-23] MEDS: Finasteride 5 MG TAB PO SCH (09:27)
[2021-01-23] MEDS: Tamsulosin HCl 0.4 MG CAP PO SCH (09:27)
[2021-01-23] MEDS: Pantoprazole 40 MG VIAL IVP SCH (09:55)
[2021-01-23] MEDS: Atorvastatin Calcium 10 MG TAB PO SCH (21:30)
[2021-01-23] MEDS: Enoxaparin Sodium 40 MG/0.4 ML SYRINGE SC SCH (21:30)
[2021-01-24 05:23] LABS: Albumin 3.3 g/dL (3.4-4.8); Anion Gap 14 mmol/L (10-20); BUN (Urea Nitrogen) 32 mg/dL (8.4-25.7); BUN/Creatinine Ratio 26.89; Calc. Creatinine Clearance 46 mL/min (70-130); Calcium 8.8 mg/dL (7.8-10.44); Carbon Dioxide 19 mmol/L (23-31); Chloride 111 mmol/L (98-107); Glucose 80 mg/dL (83-110); Phosphorus 3.3 mg/dL (2.3-4.7); Sodium 140 mmol/L (136-145)
[2021-01-24] MEDS: Levothyroxine Sodium 25 MCG TAB PO SCH (05:37)
[2021-01-24] MEDS: Dextrose 5 %-0.45 % NaCl 1,000 ML IV SCH (07:38)
[2021-01-24] MEDS: Finasteride 5 MG TAB PO SCH (09:38)
[2021-01-24] MEDS: Tamsulosin HCl 0.4 MG CAP PO SCH (09:38)
[2021-01-24] MEDS: Pantoprazole 40 MG VIAL IVP SCH (10:25)
[2021-01-24] MEDS: Lidocaine 5% Patch TD SCH (11:18)
[2021-01-24 20:52] LABS: SARS-CoV-2 PCR by NAA Not Detected (NotDetected)
[2021-01-24] MEDS: Atorvastatin Calcium 10 MG TAB PO SCH (22:00)
[2021-01-24] MEDS: Enoxaparin Sodium 40 MG/0.4 ML SYRINGE SC SCH (22:00)
[2021-01-24] MEDS: Sodium Bicarbonate Tab 325 MG TAB PER TUBE SCH (22:01)
[2021-01-24] MEDS: Transdermal Patch Removal TOP SCH (23:24)
[2021-01-25] MEDS: Dextrose 5 %-0.45 % NaCl 1,000 ML IV SCH (02:08)
[2021-01-25 05:45] LABS: Anion Gap 11 mmol/L (10-20); BUN (Urea Nitrogen) 37 mg/dL (8.4-25.7); Calc. Creatinine Clearance 0 mL/min (70-130); Carbon Dioxide 23 mmol/L (23-31); Chloride 112 mmol/L (98-107); Potassium 3.9 mmol/L (3.5-5.1); Sodium 142 mmol/L (136-145)
[2021-01-25 05:46] LABS: Albumin 3.4 g/dL (3.4-4.8); BUN/Creatinine Ratio 30.08; Calcium 9.3 mg/dL (7.8-10.44); Glucose 122 mg/dL (83-110); Phosphorus 2.4 mg/dL (2.3-4.7)
[2021-01-25] MEDS: Levothyroxine Sodium 25 MCG TAB PO SCH (06:29)
[2021-01-25] MEDS ORDERED: Lidocaine 5% Patch TD SCH (09:00)
[2021-01-25] MEDS: Sodium Bicarbonate Tab 325 MG TAB PER TUBE SCH ×2 (09:31→21:31)
[2021-01-25] MEDS: hydrALAZINE 20 MG/ML VIAL SLOW IVP PRN (09:31)
[2021-01-25] MEDS: Tamsulosin HCl 0.4 MG CAP PO SCH (09:31)
[2021-01-25] MEDS: Pantoprazole 40 MG GRANULES PACKET PO SCH (09:31)
[2021-01-25] MEDS: Finasteride 5 MG TAB PO SCH (09:31)
[2021-01-25] MEDS: Lidocaine 5% Patch TD SCH (11:39)
[2021-01-25] MEDS: Enoxaparin Sodium 40 MG/0.4 ML SYRINGE SC SCH (21:30)
[2021-01-25] MEDS: Atorvastatin Calcium 10 MG TAB PO SCH (21:30)
[2021-01-25] MEDS: Transdermal Patch Removal TOP SCH (21:32)
[2021-01-26 05:21] LABS: Albumin 3.2 g/dL (3.4-4.8); Anion Gap 10 mmol/L (10-20); BUN (Urea Nitrogen) 37 mg/dL (8.4-25.7); BUN/Creatinine Ratio 31.62; Calc. Creatinine Clearance 52 mL/min (70-130); Calcium 9.2 mg/dL (7.8-10.44); Carbon Dioxide 22 mmol/L (23-31); Chloride 115 mmol/L (98-107); Glucose 120 mg/dL (83-110); Phosphorus 2.7 mg/dL (2.3-4.7); Potassium 4.5 mmol/L (3.5-5.1); Sodium 142 mmol/L (136-145)
[2021-01-26] MEDS: Levothyroxine Sodium 25 MCG TAB PO SCH (07:08)
[2021-01-26] MEDS: Finasteride 5 MG TAB PO SCH (09:28)
[2021-01-26] MEDS: Pantoprazole 40 MG GRANULES PACKET PO SCH (09:28)
[2021-01-26] MEDS: Sodium Bicarbonate Tab 325 MG TAB PER TUBE SCH ×2 (09:28→21:26)
[2021-01-26] MEDS: Tamsulosin HCl 0.4 MG CAP PO SCH (09:29)
[2021-01-26] MEDS: Lidocaine 5% Patch TD SCH (11:45)
[2021-01-26] MEDS: Acetaminophen 325 MG TAB PO PRN (17:06)
[2021-01-26] MEDS: Enoxaparin Sodium 40 MG/0.4 ML SYRINGE SC SCH (21:26)
[2021-01-26] MEDS: Transdermal Patch Removal TOP SCH (21:26)
[2021-01-26] MEDS: Atorvastatin Calcium 10 MG TAB PO SCH (21:26)
[2021-01-27] MEDS: Levothyroxine Sodium 25 MCG TAB PO SCH (06:18)
[2021-01-27] MEDS: Finasteride 5 MG TAB PO SCH (09:50)
[2021-01-27] MEDS: Tamsulosin HCl 0.4 MG CAP PO SCH (09:50)
[2021-01-27] MEDS: Pantoprazole 40 MG GRANULES PACKET PO SCH (09:50)
[2021-01-27] MEDS: Sodium Bicarbonate Tab 325 MG TAB PER TUBE SCH ×2 (09:50→23:00)
[2021-01-27] MEDS: Lidocaine 5% Patch TD SCH (09:56)
[2021-01-27 14:54] VITALS: BMI 25.0
[2021-01-27] MEDS ORDERED: Lorazepam 2 MG/ML VIAL SLOW IVP SCH (18:15)
[2021-01-27] MEDS: Transdermal Patch Removal TOP SCH (22:00)
[2021-01-27] MEDS: Atorvastatin Calcium 10 MG TAB PO SCH (23:00)
[2021-01-28] MEDS: Enoxaparin Sodium 40 MG/0.4 ML SYRINGE SC SCH ×2 (01:19→21:07)
[2021-01-28] MEDS: Levothyroxine Sodium 25 MCG TAB PO SCH (07:24)
[2021-01-28] MEDS: Pantoprazole 40 MG GRANULES PACKET PO SCH (10:08)
[2021-01-28] MEDS: Finasteride 5 MG TAB PO SCH (10:08)
[2021-01-28] MEDS: Sodium Bicarbonate Tab 325 MG TAB PER TUBE SCH ×2 (10:09→21:07)
[2021-01-28] MEDS: Tamsulosin HCl 0.4 MG CAP PO SCH (10:09)
[2021-01-28] MEDS: Lidocaine 5% Patch TD SCH (12:41)
[2021-01-28] MEDS: hydrALAZINE 20 MG/ML VIAL SLOW IVP PRN (14:05)
[2021-01-28] MEDS ORDERED: Morphine 4 MG/ML VIAL SLOW IVP PRN (16:05)
[2021-01-28] MEDS: Atorvastatin Calcium 10 MG TAB PO SCH (21:06)
[2021-01-28] MEDS: Transdermal Patch Removal TOP SCH (21:07)
[2021-01-29] MEDS: Levothyroxine Sodium 25 MCG TAB PO SCH (04:12)
[2021-01-29] MEDS: Pantoprazole 40 MG GRANULES PACKET PO SCH (13:03)
[2021-01-29] MEDS: Finasteride 5 MG TAB PO SCH (13:03)
[2021-01-29] MEDS: Sodium Bicarbonate Tab 325 MG TAB PER TUBE SCH ×2 (13:04→22:05)
[2021-01-29] MEDS: Tamsulosin HCl 0.4 MG CAP PO SCH (13:04)
[2021-01-29] MEDS: EPOETIN ALFA-EPBX (ESRD) 3,000 UNIT/ML VIAL SC SCH (13:09)
[2021-01-29] MEDS: EPOETIN ALFA-EPBX (ESRD) 2,000 UNIT/ML VIAL SC SCH (13:09)
[2021-01-29] MEDS: Lidocaine 5% Patch TD SCH ×2 (16:33→16:44)
[2021-01-29] MEDS: Atorvastatin Calcium 10 MG TAB PO SCH (22:01)
[2021-01-29] MEDS: Enoxaparin Sodium 40 MG/0.4 ML SYRINGE SC SCH (22:02)
[2021-01-29] MEDS: hydrALAZINE 20 MG/ML VIAL SLOW IVP PRN (22:05)
[2021-01-29] MEDS: Transdermal Patch Removal TOP SCH (22:05)
[2021-01-30] MEDS: Levothyroxine Sodium 25 MCG TAB PO SCH (06:10)
[2021-01-30] MEDS ORDERED: cloNIDine 0.1mg/24 Hour PATCH TD SCH (09:00)
[2021-01-30] MEDS: Sodium Bicarbonate Tab 325 MG TAB PER TUBE SCH ×2 (09:12→22:10)
[2021-01-30] MEDS: Tamsulosin HCl 0.4 MG CAP PO SCH (09:12)
[2021-01-30] MEDS: Pantoprazole 40 MG GRANULES PACKET PO SCH (09:12)
[2021-01-30] MEDS: Finasteride 5 MG TAB PO SCH (09:12)
[2021-01-30] MEDS: Lidocaine 5% Patch TD SCH (12:38)
[2021-01-30] MEDS: Enoxaparin Sodium 40 MG/0.4 ML SYRINGE SC SCH (22:11)
[2021-01-30] MEDS: Atorvastatin Calcium 10 MG TAB PO SCH (22:11)
[2021-01-30] MEDS: Transdermal Patch Removal TOP SCH (22:12)
[2021-01-31] MEDS: Levothyroxine Sodium 25 MCG TAB PO SCH (05:47)
[2021-01-31] MEDS: Tamsulosin HCl 0.4 MG CAP PO SCH (08:42)
[2021-01-31] MEDS: Sodium Bicarbonate Tab 325 MG TAB PER TUBE SCH (08:43)
[2021-01-31] MEDS: Finasteride 5 MG TAB PO SCH (08:43)
[2021-01-31] MEDS: Pantoprazole 40 MG GRANULES PACKET PO SCH (08:43)
[2021-01-31] MEDS: Lidocaine 5% Patch TD SCH (12:06)
[2021-01-31 12:50] VITALS: BP 108/62; TEMP 97.6
== END 2021-01-31 14:17 | disposition hospice, inpatient (51) | DRG 239 ==
LOC: ERS 10:34 → SURG B 17:00 → SURG A 19:06 → CCU 01-13 14:40 → 2NO 01-15 22:56 → CCU 01-16 10:22 → 2NO 01-23 14:40 → T4-B 01-27 22:30
PROVIDERS: ADMIT Internal Medicine; ATTEND Internal Medicine
PROC: 0Y6D0Z1 Detachment at Left Upper Leg, High, Open Approach (ICD-10-PCS; principal; 2021-01-08)
PROC: 5A09357 Assistance with Respiratory Ventilation, Less than 24 Consecutive Hours, Continuous Positive Airway Pressure (ICD-10-PCS; 2021-01-13)
PROC: 3E033XZ Introduction of Vasopressor into Peripheral Vein, Percutaneous Approach (ICD-10-PCS; 2021-01-16)
PROC: 5A12012 Performance of Cardiac Output, Single, Manual (ICD-10-PCS; 2021-01-16)
PROC: 5A1955Z Respiratory Ventilation, Greater than 96 Consecutive Hours (ICD-10-PCS; 2021-01-16)
PROC: 0BH17EZ Insertion of Endotracheal Airway into Trachea, Via Natural or Artificial Opening (ICD-10-PCS; 2021-01-16)
PROC: 0DH67UZ Insertion of Feeding Device into Stomach, Via Natural or Artificial Opening (ICD-10-PCS; 2021-01-24)
PROC: 3E0G76Z Introduction of Nutritional Substance into Upper GI, Via Natural or Artificial Opening (ICD-10-PCS; 2021-01-24)
PROC: 0JH604Z Insertion of Pacemaker, Single Chamber into Chest Subcutaneous Tissue and Fascia, Open Approach (ICD-10-PCS; 2021-01-25)
PROC: 02HK3JZ Insertion of Pacemaker Lead into Right Ventricle, Percutaneous Approach (ICD-10-PCS; 2021-01-25)
DX: I70.262 Atherosclerosis of native arteries of extremities with gangrene, left leg (principal); G93.41 Metabolic encephalopathy; I46.2 Cardiac arrest due to underlying cardiac condition; J96.01 Acute respiratory failure with hypoxia; F05 Delirium due to known physiological condition; F01.51 Vascular dementia, unspecified severity, with behavioral disturbance; E87.2 Acidosis; J90 Pleural effusion, not elsewhere classified; I48.11 Longstanding persistent atrial fibrillation; I47.2 Ventricular tachycardia; D62 Acute posthemorrhagic anemia; E87.3 Alkalosis; S37.39XA Other injury of urethra, initial encounter; L03.116 Cellulitis of left lower limb; N17.9 Acute kidney failure, unspecified; Z20.822 Contact with and (suspected) exposure to COVID-19; Z66 Do not resuscitate; I08.3 Combined rheumatic disorders of mitral, aortic and tricuspid valves; N40.1 Benign prostatic hyperplasia with lower urinary tract symptoms; R33.8 Other retention of urine; D63.1 Anemia in chronic kidney disease; I12.9 Hypertensive chronic kidney disease with stage 1 through stage 4 chronic kidney disease, or unspecified chronic kidney disease; I71.4 Abdominal aortic aneurysm, without rupture; N18.30 Chronic kidney disease, stage 3 unspecified; I95.2 Hypotension due to drugs; T46.1X5A Adverse effect of calcium-channel blockers, initial encounter; E87.70 Fluid overload, unspecified; R13.12 Dysphagia, oropharyngeal phase; E83.42 Hypomagnesemia; I49.5 Sick sinus syndrome; E87.6 Hypokalemia; X83.8XXA Intentional self-harm by other specified means, initial encounter; Z95.0 Presence of cardiac pacemaker; Z78.1 Physical restraint status; Z79.899 Other long term (current) drug therapy; Z79.890 Hormone replacement therapy; R31.9 Hematuria, unspecified
CPT/HCPCS: 33207; 36415; 36416; 36600; 71045; 74018; 75635; 76770; 76870; 80048; 80053; 80061; 80069; 81001; 82040; 82550; 82570; 82728; 82805; 83036; 83540; 83550; 83605; 83735; 83880; 84100; 84156; 84300; 84443; 84484; 84540; 85007; 85025; 85027; 85610; 85652; 85730; 86140; 87040; 87086; 88307; 88311; 93005; 93010; 93306; 93923; 94002; 94003; 94640; 94660; 96365; 96366; 96367; 96375; C1751; C1785; C1898; C9113; J0171; J0360; J0690; J0692; J1100; J1120; J1250; J1580; J1610; J1644; J1650; J1940; J2001; J2060; J2270; J2370; J2543; J2704; J2916; J3010; J3370; J3475; J3490; J7030; J7042; J7050; J7620; P9045; P9047; Q5105; Q9967; S0020; U0002; U0003; U0005